=== PATIENT | male | born 1985 | race Two or more races ===

== ENCOUNTER 2024-05-29 23:58 | Emergency (ER) | payer OTHER ==
[~2024-05-29] VITALS: Ht 157.5 cm; Wt 72.7 kg
[2024-05-30 02:25] VITALS: BP 140/93; PULSE 66; RESP 17; TEMP 98.2; O2SAT 98
[2024-05-30] MEDS ORDERED: AUG875T PO (02:27)
[2024-05-30] MEDS ORDERED: METH4PAK PO (02:27)
--- NOTE | 2024-05-30 02:27 | ED.PDOC ---
Eye-HPI HPI Comments Pt presented to ED for flu-like s/s: sorethroat, n/v, fever at home 103.8 (oral temp in triage 98.8) x4 days. GCS-15, all VSS. Denies difficulty breathing, shortness of breath, chest pain, recent ill contacts or travel. Chief Complaint: Flu like Time Seen by MD: 00:16 Reviewed Notes: Nurses Notes, Medications, Allergies Allergies: Coded Allergies: No Known Drug Allergy (Verified Allergy, Unknown, 05/30/24) Home Meds Active Scripts Methylprednisolone (Medrol Dosepak) 4 Mg Sukhdeep, 4 MG PO UD for 6 Days, #21 TAB UAD Prov:MORENITA THORNTON SMOKE ROOM OPERATOR 05/30/24 Amoxicillin & Pot Clavulanate (AUGMENTIN TABLET) 875 Mg Tb, 875 MG PO BID for 10 Days, #20 TAB Prov:NORBERTODAVE SyedK SMOKE ROOM OPERATOR 05/30/24 Discontinued Scripts Methylprednisolone (Medrol Dosepak) 4 Mg Sukhdeep, 4 MG PO UD for 6 Days, #21 TAB UAD Prov:MORENITA THORNTON SMOKE ROOM OPERATOR 05/30/24 Amoxicillin & Pot Clavulanate (AUGMENTIN TABLET) 875 Mg Tb, 875 MG PO BID for 10 Days, #20 TAB Prov:MORENITA THORNTON SMOKE ROOM OPERATOR 05/30/24 Mode of Arrival: Ambulatory Past Medical History PAST MEDICAL HISTORY: Denies Surgical History: Denies all surgeries Family History Family History: Unknown Social History Smoker: Non-Smoker Alcohol: Denies ETOH Use Drugs: Denies Drug Use Constitutional: reports: chills, fever; denies: diaphoresis, fatigue, malaise, sweats, weakness, others EENTM: reports: throat pain, throat swelling; denies: blurred vision, double vi karthik, ear bleeding, ear discharge, ear drainage, ear pain, ear ringing, eye pain, eye redness, hearing loss, mouth pain, mouth swelling, nasal discharge, nose bleeding, nose congestion, nose pain, photophobia, tearing, voice changes, others Respiratory: reports: cough; denies: hemoptysis, orthopnea, SOB at rest, shortness of breath, SOB with excertion, stridor, wheezing, others Cardiovascular: denies: chest pain, dizzy spells, diaphoresis, Dyspnea on exertion, edema, irregular heart beat, left arm pain, lightheadedness, palpitations, PND, syncope, others Gastrointestinal: reports: nausea, vomiting; denies: abdomen distended, abdomi nal pain, blood streaked bowels, constipated, diarrhea, dysphagia, difficulty swallowing, hematemesis, melena, poor appetite, poor fluid intake, rectal bleeding, rectal pain, others Genitourinary: denies: burning, dysuria, flank pain, frequency, hematuria, incontinence, penile discharge, penile sore, pain, testicle pain, testicle swelling, urgency, others Neurological: denies: dizziness, fainting, headache, left sided numbness, left sided weakness, numbness, paresthesia, pre-existing deficit, right sided numbness, right sided weakness, seizure, speech problems, tingling, tremors, weakness, others Musculoskeletal: denies: back pain, gout, joint pain, joint swelling, muscle pain, muscle stiffness, neck pain, others Integumetry: denies: bruises, change in color, change in hair/nails, dryness, laceration, lesions, lumps, rash, wounds, others Allergic/Immunocompromised: denies: Difficulty Healing, Frequent Infections, Hives, Itching, others Hematologic/Lymphatic: denies: anemia, blood clots, easy bleeding, easy bruising, swollen glands, others Endocrine: denies: excessive hunger, excessive sweating, excessive thirst, excessive urination, flushing, intolerance to cold, intolerance to heat, unexplained weight gain, unexplained weight loss, others Psychiatric: denies: anxiety, bipolar disorder, depression, hopeless, panic disorder, schizophrenia, sleepless, suicidal, others Physical Exam General Appearance: No Apparent Distress, Normal HEENT: Pharyngeal Erythema, TMs Normal, Tonsillar Exudate (Grade 3) Neck: Full Range of Motion, Non-Tender, Normal, Normal Inspection Respiratory: Chest Non-Tender, Lungs Clear, No Accessory Muscle Use, No Respiratory Distress, Normal Breath Sounds Cardiovascular: No Edema, No JVD, No Murmur, No Gallop, Normal Peripheral Pulses, Regular Rate/Rhythm Breast Exam: Deferred Gastrointestinal: No Organomegaly, Non Tender, No Pulsatile Mass, Normal Bowel Sounds, Soft Genitalia: Deferred Pelvic: Deferred Rectal: Deferred Extremities: No calf tenderness, Normal capillary refill, Normal inspection, Normal range of motion, Non-tender, No pedal edema Musculoskeletal : Apperance: Normal Neurologic: Alert, boxing trainer II-XII nml as Tested, No Motor Deficits, Normal Affect, Normal Mood, No Sensory Deficits Cerebellar Function: Normal Reflexes: Normal Skin: Dry, Normal Color, Warm Lymphatic: No Adenopathy Was a procedure done? Was a procedure done?: No EENT DIFF Eye: N/A Sore Throat: Epiglottitis, Peritonsillar Abscess, Peritonsillar Cellulitis, Streptococcal, Viral Pharyngitis, URI X-Ray, Labs, Meds, VS Vital Signs Date Time Temp Pulse Resp B/P (MAP) Pulse Ox O2 Delivery O2 Flow Rate FiO2 05/30/24 02:25 66 17 98 Room Air 05/30/24 02:25 98.2 66 17 140/93 (109) 98 98.2 05/30/24 00:44 98.8 71 20 145/93 (110) 96 98.8 Current Medications Medications (Trade) Dose Ordered Sig/Yayo Route Start Time Stop Time Status Last Admin Dexamethasone Sodium Phosphate (Decadron Injection) 10 mg ONCE ONCE IM 05/30/24 02:30 05/30/24 02:31 DC 05/30/24 02:42 Ceftriaxone Sodium (Rocephin) 1,000 mg ONCE ONCE IM 05/30/24 02:30 05/30/24 02:31 DC 05/30/24 02:43 X-Ray, Labs, Meds, VS Comment Patient given Decadron 10 mg IM and Rocephin 1 g IM reports improvement in pain requesting discharge at this time. Likely bacterial. Augmentin and Medrol Dose sukhdeep take medications as prescribed side effects discussed. Follow up with your PCP 1-2 days as necessary. ER return precautions given patient indicates understanding agrees with discharge plan of care. Time of 1ST Reevaluation: :25 Reevaluation 1ST: Improved Patient Education/Counseling: Diagnosis, Treatment, Prognosis, Need For Follow Up Family Education/Counseling: Diagnosis, Treatment, Prognosis, Need For Follow Up Departure 1 Departure Time of Disposition: 02:25 Impression: Primary Impression: Acute tonsillitis Qualified Codes: J03.90 - Acute tonsillitis, unspecified Disposition: HOME / SELF CARE / HOMELESS Condition: Stable e-Prescriptions Methylprednisolone (Medrol Dosepak) 4 Mg Sukhdeep 4 MG PO UD for 6 Days, #21 TAB UAD Prov: MORENITA THORNTON 05/30/24 Amoxicillin & Pot Clavulanate (AUGMENTIN TABLET) 875 Mg Tb 875 MG PO BID for 10 Days, #20 TAB Prov: MORENITA THORNTON 05/30/24 Discharged With: Relative (Mother) Critical Care Note Critical Care Time?: No Stability Stability form required: No MORENITA THORNTON May 30, 2024 02:27
[2024-05-30] MEDS: DexAMETHasone SOD PHOS 10MG/1ML VIAL INJ IM ONE (02:42)
[2024-05-30] MEDS: cefTRIAXone SOD 1,000 MG VL IM ONE (02:43)
== END 2024-05-30 02:57 | disposition home or self-care (01) ==
LOC: ER 23:58
DX: J03.90 Acute tonsillitis, unspecified (principal)
CPT/HCPCS: 96372; 99284; J0696; J1100